=== PATIENT | male | born 1985 | race Caucasian/White ===

== ENCOUNTER → 2017-03-06 | Outpatient (CLI) | payer OTHER ==
[2017-03-06 08:37] LABS: SPERM MORPHOLOGY SENT TO REFERENC LAB
[2017-03-06 09:41] LABS: ROUND CELL CONC. 1.9 X10^6/mL (<5.1); SA NONMOTILE CONCENTRATION 1.2 X10^6/mL; SA NONMOTILE COUNT1 12; SA NONMOTILE COUNT2 11; SA ROUND CELL COUNT1 19; SA ROUND CELL COUNT2 19; SA STRAIGHT MOTILITY CNT 1 11; SA STRAIGHT MOTILITY CNT 2 9; TOTAL SPERM COUNT 12.8 X10^6 (>33.0)
[2017-03-06 09:45] LABS: SPERM PROGRESSION 3
== END ==
LOC: LAB 08:27
PROVIDERS: ATTEND Urology
DX: E29.1 Testicular hypofunction (principal); N46.11 Organic oligospermia
CPT/HCPCS: 36415; 89320